=== PATIENT | male | born 1980 | race Two or more races ===

== ENCOUNTER 2018-07-24 01:24 | Inpatient (IN) | payer OTHER ==
[~2018-07-24] VITALS: Ht 170.2 cm; Wt 87.3 kg
[2018-07-24] MEDS ORDERED: MORPHINE SULFATE 4 MG/ML, 1ML ONE (01:59)
[2018-07-24] MEDS ORDERED: ONDANSETRON 2MG/ML, 2ML ONE (01:59)
[2018-07-24] MEDS ORDERED: DEXAMETHASONE 4 MG/ML, 5ML ONE (01:59)
[2018-07-24] MEDS ORDERED: SODIUM CHLORIDE 0.9% 1,000ML IVBOLUS ONE (02:00)
[2018-07-24] MEDS ORDERED: DEXAMETHASONE 4 MG/ML, 1ML IVPush ONE (02:00)
[2018-07-24] MEDS ORDERED: SODIUM CHLORIDE FLUSH 10ML SYR IVF ONE (02:00)
[2018-07-24] MEDS ORDERED: AMPICILLIN/SULBACTAM 3 GM in SODIUM CHLORIDE 0.9% 100 ML IV ONE (02:00)
[2018-07-24] MEDS ORDERED: ONDANSETRON 2MG/ML, 2ML IVPush ONE (02:00)
[2018-07-24] MEDS ORDERED: MORPHINE SULFATE 4 MG/ML, 1ML IVPush PRN (02:00)
[2018-07-24 02:07] LABS: BASOPHILS # (AUTO) 0.03 x10^3/uL (0-0.1); BASOPHILS % (AUTO) 0 % (0-1); EOSINOPHILS # (AUTO) 0.01 x10^3/uL (0-0.4); EOSINOPHILS % (AUTO) 0 % (1-7); LYMPHOCYTES # (AUTO) 1.19 x10^3/uL (1-3.4); LYMPHOCYTES % (AUTO) 12 % (22-44); MD NO; MEAN CORPUSCULAR HEMOGLOBIN 31.4 pg (27.5-34.5); MEAN CORPUSCULAR HGB CONC 34.4 g/dL (33.2-36.2); MEAN CORPUSCULAR VOLUME 91.4 fL (81-97); MEAN PLATELET VOLUME 9.6 fL (7.4-10.4); MONOCYTES # (AUTO) 0.87 x10^3/uL (0.2-0.8); MONOCYTES % (AUTO) 9 % (2-9); NEUTROPHILS # (AUTO) 7.96 x10^3/uL (1.8-6.8); NEUTROPHILS % (AUTO) 79 % (42-75); PLATELET COUNT 216 x10^3/uL (130-400); RED BLOOD COUNT 4.93 x10^6/uL (4.38-5.82); RED CELL DISTRIBUTION WIDTH 12.1 % (9.4-14.8)
[2018-07-24] MEDS ORDERED: OMNIPAQUE 350 MG/ML, 100ML BOTTLE ONE (02:07)
[2018-07-24 02:17] LABS: ALBUMIN 4.2 g/dL (3.4-5.0); ANION GAP 8 mmol/L (5-15); CHLORIDE 108 mmol/L (98-107); CREATININE 0.81 mg/dL (0.7-1.3)
[2018-07-24] MEDS ORDERED: OXYcodone IR 5MG TABLET PO PRN (03:30)
[2018-07-24] MEDS ORDERED: POLYETHYLENE GLYCOL 17 GM PACKET PO PRN (03:30)
[2018-07-24] MEDS ORDERED: PROMETHAZINE 25 MG/ML, 1ML IM PRN (03:30)
[2018-07-24] MEDS ORDERED: DOCUSATE 100 MG CAPSULE PO PRN (03:30)
[2018-07-24] MEDS ORDERED: BISACODYL 10 MG SUPP PR PRN (03:30)
[2018-07-24] MEDS ORDERED: ACETAMINOPHEN 325 MG TABLET PO PRN (03:30)
[2018-07-24] MEDS ORDERED: ONDANSETRON 2MG/ML, 2ML IVPush PRN (03:30)
[2018-07-24] MEDS ORDERED: ONDANSETRON ODT 4 MG PO PRN (03:30)
[2018-07-24] MEDS ORDERED: morphine SULFATE 10 MG/ML, 1ML IVPush PRN (03:30)
[2018-07-24] MEDS ORDERED: POTASSIUM CHLORIDE 40 MEQ in SODIUM CHLORIDE 0.9% 500 ML IV ONE (04:00)
[2018-07-24 04:07] LABS: FREE T4 (FREE THYROXINE) 1.5 ng/dL (0.76-1.46); THYROID STIMULATING HORMONE 2.1 mIU/L (0.358-3.740)
[2018-07-24] MEDS: KETOROLAC 30 MG/1 ML IV PRN ×2 (04:23→11:29)
[2018-07-24] MEDS: DEXAMETHASONE 4 MG/ML, 1ML IVPush SCH ×3 (06:43→23:38)
[2018-07-24] MEDS: AMPICILLIN/SULBACTAM 3 GM in SODIUM CHLORIDE 0.9% 100 ML IV SCH ×3 (09:55→20:09)
[2018-07-24] MEDS: SODIUM CHLORIDE 0.9% 1,000 ML IV SCH ×2 (09:56→20:09)
[2018-07-24 11:34] VITALS: BP 128/81
[2018-07-24 15:20] VITALS: BP 103/69
[2018-07-24 19:20] VITALS: BP 124/67
[2018-07-25] MEDS: AMPICILLIN/SULBACTAM 3 GM in SODIUM CHLORIDE 0.9% 100 ML IV SCH ×4 (02:02→19:47)
[2018-07-25 03:35] VITALS: BP 104/64
[2018-07-25 05:24] LABS: BASOPHILS % (AUTO) 0 % (0-1); EOSINOPHILS % (AUTO) 0 % (1-7); LYMPHOCYTES # (AUTO) 0.94 x10^3/uL (1-3.4); LYMPHOCYTES % (AUTO) 8 % (22-44); MD NO; MEAN CORPUSCULAR HEMOGLOBIN 31.6 pg (27.5-34.5); MEAN CORPUSCULAR HGB CONC 34.1 g/dL (33.2-36.2); MEAN CORPUSCULAR VOLUME 92.7 fL (81-97); MEAN PLATELET VOLUME 9.9 fL (7.4-10.4); MONOCYTES % (AUTO) 4 % (2-9); NEUTROPHILS # (AUTO) 10.45 x10^3/uL (1.8-6.8); NEUTROPHILS % (AUTO) 88 % (42-75); PLATELET COUNT 224 x10^3/uL (130-400); RED BLOOD COUNT 4.33 x10^6/uL (4.38-5.82); RED CELL DISTRIBUTION WIDTH 12.5 % (9.4-14.8)
[2018-07-25 05:46] LABS: CHLORIDE 111 mmol/L (98-107)
[2018-07-25 05:57] LABS: ALANINE AMINOTRANSFERASE 50 U/L (12-78); ALBUMIN 2.8 g/dL (3.4-5.0); ALKALINE PHOSPHATASE 188 U/L (45-117); ANION GAP 6 mmol/L (5-15); BILIRUBIN,TOTAL 0.6 mg/dL (0.2-1.0); CALCIUM 8.5 mg/dL (8.5-10.1); CHOL/HDL RATIO 5.5; CHOLESTEROL, TOTAL 170 mg/dL (140-239); CREATININE 0.67 mg/dL (0.7-1.3); HDL CHOL % 18 % (26-37); HDL CHOLESTEROL (DIRECT) 31 mg/dL (40-60); LDL CHOLESTEROL,CALCULATED 117 mg/dL (54-169); LDL/HDL RATIO 3.8 (0.5-3.0); TOTAL PROTEIN 6.9 g/dL (6.4-8.2); TRIGLYCERIDES 108 mg/dL (50-200); VLDL CHOLESTEROL 22 mg/dL (0-25)
[2018-07-25] MEDS: SODIUM CHLORIDE 0.9% 1,000 ML IV SCH (06:17)
[2018-07-25] MEDS: DEXAMETHASONE 4 MG/ML, 1ML IVPush SCH (06:20)
[2018-07-25 07:55] VITALS: BP 122/69
[2018-07-25 14:28] VITALS: BP 112/72
[2018-07-25 19:46] VITALS: BP 128/86
[2018-07-25] MEDS: KETOROLAC 30 MG/1 ML IV PRN (19:47)
[2018-07-26 00:07] VITALS: BP 113/74
[2018-07-26] MEDS: AMPICILLIN/SULBACTAM 3 GM in SODIUM CHLORIDE 0.9% 100 ML IV SCH ×2 (02:09→07:52)
[2018-07-26] MEDS: KETOROLAC 30 MG/1 ML IV PRN ×2 (04:53→13:05)
[2018-07-26 06:42] VITALS: BP 106/68
[2018-07-26] MEDS ORDERED: AMOX1TAB64 PO (12:30)
[2018-07-26] MEDS ORDERED: IBUP-1221 PO (12:30)
[2018-07-26 13:12] VITALS: BP 126/80
== END 2018-07-26 14:25 | disposition home or self-care (01) | DRG 153 ==
LOC: ED 03:20 → EDIP 03:51 → 4NOR 04:11 → DCLOUNGE 07-26 14:03
PROVIDERS: ADMIT Internal Medicine; ATTEND Internal Medicine
DX: J39.1 Other abscess of pharynx (principal); J36 Peritonsillar abscess; E87.6 Hypokalemia; K08.89 Other specified disorders of teeth and supporting structures
CPT/HCPCS: 36415; 70491; 80048; 80053; 80061; 82040; 83036; 83605; 83735; 84145; 84439; 84443; 85025; 86308; 87040; 96365; 96375; 99285; G0378; J0295; J1100; J1885; J2405; J3480; Q9967; J7030; J7040

== ENCOUNTER 2018-07-26 22:03 | Inpatient (IN) | payer MEDICAID, OTHER ==
[~2018-07-26] VITALS: Ht 170.2 cm; Wt 88.6 kg
[~2018-07-26 22:03] MED LIST: AMOX1TAB64 PO; IBUP-1221 PO
[2018-07-26] MEDS ORDERED: SODIUM CHLORIDE FLUSH 10ML SYR IVF ONE (22:30)
--- NOTE | 2018-07-26 22:45 | NUR ---
FIRST CONTACT WITH PT. PT SITTING UP IN [facility], [facility] NOTED. PT REPORTS WORSENING R FACE/NECK PAIN AND SWELLING DESPITE ABX. PT DC'D FROM [facility] INPATIENT FOR TX OF SAME. PT REPORTS SOME PAIN W/ SWALLOWING. PT MANAGING OWN SECRETIONS; AIRWAY PATENT, SPEECH CLEAR. DENIES FEVER/N/V. BP/SPO2 MONITOR IN PLACE. SPO2 >90% ON RR. RR WNL. IV ESTABLISHED. LABS AND BC X1 DRAWN WITH IV START. PT UPDATED TO POC (LAB/CT/RESULTS/RECHECK) AND DEMONSTRATES UNDERSTANDING. FRIEND AT BS.
[2018-07-26] MEDS ORDERED: OMNIPAQUE 350 MG/ML, 100ML BOTTLE ONE (23:09)
[2018-07-26 23:15] LABS: ALBUMIN 3.5 g/dL (3.4-5.0); ANION GAP 6 mmol/L (5-15); CALCIUM 8.6 mg/dL (8.5-10.1); CHLORIDE 107 mmol/L (98-107); CREATININE 0.84 mg/dL (0.7-1.3)
[2018-07-26 23:17] LABS: BASOPHILS # (AUTO) 0.02 x10^3/uL (0-0.1); BASOPHILS % (AUTO) 0 % (0-1); EOSINOPHILS # (AUTO) 0.08 x10^3/uL (0-0.4); EOSINOPHILS % (AUTO) 1 % (1-7); LYMPHOCYTES # (AUTO) 2.27 x10^3/uL (1-3.4); LYMPHOCYTES % (AUTO) 20 % (22-44); MD NO; MEAN CORPUSCULAR HEMOGLOBIN 30.7 pg (27.5-34.5); MEAN PLATELET VOLUME 9.7 fL (7.4-10.4); MONOCYTES # (AUTO) 1.11 x10^3/uL (0.2-0.8); MONOCYTES % (AUTO) 10 % (2-9); NEUTROPHILS # (AUTO) 7.88 x10^3/uL (1.8-6.8); NEUTROPHILS % (AUTO) 69 % (42-75); PLATELET COUNT 314 x10^3/uL (130-400); RED BLOOD COUNT 4.98 x10^6/uL (4.38-5.82); RED CELL DISTRIBUTION WIDTH 12.6 % (9.4-14.8)
[2018-07-27] MEDS ORDERED: ONDANSETRON 2MG/ML, 2ML ONE ×2 (00:05→02:18)
[2018-07-27] MEDS ORDERED: HYDROmorphone 1 MG/ML, 1ML ONE (00:05)
--- NOTE | 2018-07-27 00:15 | NUR ---
PT MEDICATED PER EMAR FOR 10/10 PAIN. BP/SPO2 MONITORING IN PLACE. PT PLACED ON 2L BY NC FOR SUPPORT. PT UPDATED TO POC (RESULTS/RECHECK) AND DEMONSTRATES UNDERSTANDING. AWAITING CT RESULT. FRIEND AT BEDSIDE.
[2018-07-27] MEDS ORDERED: AMPICILLIN/SULBACTAM 3 GM in SODIUM CHLORIDE 0.9% 100 ML IV ONE (00:30)
[2018-07-27] MEDS ORDERED: ONDANSETRON 2MG/ML, 2ML IVPush ONE (00:30)
[2018-07-27] MEDS ORDERED: HYDROmorphone 1 MG/ML, 1ML IVPush PRN (00:30)
[2018-07-27] MEDS ORDERED: methylPREDNISolone SOD SUCC 125 MG/2 ML ONE (00:41)
--- NOTE | 2018-07-27 00:50 | NUR ---
ABX AND STEROID ADMINISTERED PER EMAR. BC X2 DRAWN PRIOR TO ABX ADMIN. SPEECH MUFFLED. AIRWAY PATENT. PT MANAGING OWN SECRETIONS.
[2018-07-27] MEDS ORDERED: methylPREDNISolone SOD SUCC 125 MG/2 ML IVP ONE (01:00)
[2018-07-27] MEDS ORDERED: SODIUM CHLORIDE FLUSH 10ML SYR IVF PRN (01:00)
--- NOTE | 2018-07-27 01:12 | NUR ---
REPORT TO CRISTIN TIMMONS ON FLOOR.
[2018-07-27 01:28] VITALS: BP 148/94
[2018-07-27] MEDS ORDERED: MUPIROCIN OINT 2%, 22GM ONE (01:43)
[2018-07-27] MEDS ORDERED: BUPIVACAINE/PF-EPI 0.5% 1:200K ONE (01:43)
[2018-07-27] MEDS ORDERED: PHENYLEPHRINE NASAL 1%, 30ML DROPS ONE (01:54)
[2018-07-27] MEDS ORDERED: OXYMETAZOLINE NASAL SPRAY 0.05%, 15ML ONE (01:54)
[2018-07-27] MEDS: SODIUM CHLORIDE 0.9% 1,000 ML IV SCH ×3 (02:03→18:03)
[2018-07-27] MEDS ORDERED: PROPOFOL 50 ML ONE (02:12)
[2018-07-27] MEDS ORDERED: FENTANYL PF 250 MCG/5ML ONE (02:13)
[2018-07-27] MEDS ORDERED: MIDAZOLAM 1 MG/ML, 2ML ONE (02:13)
[2018-07-27] MEDS ORDERED: SUCCINYLCHOLINE 20 MG/ML, 10ML ONE (02:18)
[2018-07-27] MEDS ORDERED: PROPOFOL 10 MG/ML, 20ML ONE (02:18)
[2018-07-27] MEDS ORDERED: DEXAMETHASONE 4 MG/ML, 5ML ONE (02:18)
[2018-07-27] MEDS ORDERED: ROCURONIUM 10 MG/ML,10ML ONE (02:18)
[2018-07-27] MEDS ORDERED: BUPIVACAINE/PF-EPI 0.5% 1:200K IM ONE (02:29)
[2018-07-27] MEDS ORDERED: DEXAMETHASONE 4 MG/ML, 1ML IVPush ONE (02:30)
[2018-07-27] MEDS ORDERED: MUPIROCIN OINT 2%, 22GM TP ONE (02:30)
[2018-07-27] MEDS ORDERED: POTASSIUM CHLORIDE 20 MEQ TAB.ER.PRT PO ONE (02:30)
[2018-07-27] MEDS ORDERED: ONDANSETRON 2MG/ML, 2ML IVPush PRN (02:30)
[2018-07-27] MEDS ORDERED: EPINEPHRINE TOPICAL SOLN 1 MG/ML, 30ML ONE (02:39)
[2018-07-27] MEDS ORDERED: OXYMETAZOLINE NASAL SPRAY 0.05%, 15ML NAS ONE (02:44)
[2018-07-27] MEDS ORDERED: EPINEPHRINE TOPICAL SOLN 1 MG/ML, 30ML TP ONE (02:56)
[2018-07-27] MEDS ORDERED: THROMBIN 5,000 UNIT VIAL TP ONE ×2 (03:35→03:37)
[2018-07-27] MEDS ORDERED: OXYcodone 5 MG/5 ML ORAL.SOL UDC ONE (03:58)
[2018-07-27] MEDS ORDERED: FENTANYL PF 100 MCG/2ML ONE (03:58)
[2018-07-27] MEDS ORDERED: ONDANSETRON ODT 8 MG PO PRN (04:00)
[2018-07-27] MEDS ORDERED: PROMETHAZINE 12.5 MG SUPP PR PRN (04:00)
[2018-07-27] MEDS ORDERED: DIAZEPAM 5 MG/ML, 2ML IVPush PRN (04:00)
[2018-07-27] MEDS ORDERED: OXYcodone 5 MG/5 ML ORAL.SOL UDC PO PRN (04:00)
[2018-07-27] MEDS ORDERED: EPHEDRINE 50 MG/ML, 1ML IM PRN (04:00)
[2018-07-27] MEDS ORDERED: MEPERIDINE/PF 25MG/0.5ML IVPush PRN (04:00)
[2018-07-27] MEDS ORDERED: MORPHINE SULFATE 4 MG/ML, 1ML IVPush PRN (04:00)
[2018-07-27] MEDS ORDERED: MIDAZOLAM 1 MG/ML, 2ML IV PRN (04:00)
[2018-07-27] MEDS ORDERED: PROMETHAZINE 25 MG/ML, 1ML IV PRN (04:00)
[2018-07-27] MEDS ORDERED: DIPHENHYDRAMINE 50 MG/ML, 1ML IVPush PRN (04:00)
[2018-07-27] MEDS ORDERED: ONDANSETRON 2MG/ML, 2ML IV PRN (04:00)
[2018-07-27] MEDS ORDERED: PROMETHAZINE 25 MG SUPP PR PRN (04:00)
[2018-07-27] MEDS ORDERED: LABETALOL 5MG/ML, 20ML IV PRN (04:00)
[2018-07-27] MEDS ORDERED: EPHEDRINE 50 MG/ML, 1ML IVPush PRN (04:00)
[2018-07-27] MEDS: FENTANYL PF 100 MCG/2ML IV PRN ×2 (04:09→04:19)
[2018-07-27] MEDS ORDERED: morphine SULFATE 10 MG/ML, 1ML IVPush PRN (05:30)
[2018-07-27] MEDS: D5%-LACTATED RINGERS 1,000 ML IV SCH ×2 (05:37→13:23)
[2018-07-27] MEDS: AMPICILLIN/SULBACTAM 3 GM in SODIUM CHLORIDE 0.9% 100 ML IV SCH ×3 (06:33→18:38)
[2018-07-27 06:45] VITALS: BP 144/95
[2018-07-27] MEDS: HYDROcodone/APAP 7.5-325MG/15ML UDC PO PRN ×4 (08:13→20:41)
[2018-07-27] MEDS: KETOROLAC 30 MG/1 ML IV PRN ×2 (08:13→17:26)
[2018-07-27] MEDS: DEXAMETHASONE 4 MG/ML, 1ML IVPush SCH ×4 (09:30→20:41)
[2018-07-27 13:31] VITALS: BP 133/87
[2018-07-27] MEDS ORDERED: VANCOMYCIN PER PHARMACY MC PRN (15:00)
[2018-07-27] MEDS: VANCOMYCIN 1,700 MG in SODIUM CHLORIDE 0.9% 250 ML IV SCH (16:06)
[2018-07-27 19:35] VITALS: BP 145/90
[2018-07-28] MEDS: D5%-LACTATED RINGERS 1,000 ML IV SCH (01:26)
[2018-07-28] MEDS: DEXAMETHASONE 4 MG/ML, 1ML IVPush SCH ×2 (01:26→05:55)
[2018-07-28] MEDS: AMPICILLIN/SULBACTAM 3 GM in SODIUM CHLORIDE 0.9% 100 ML IV SCH ×4 (01:26→18:32)
[2018-07-28] MEDS: KETOROLAC 30 MG/1 ML IV PRN ×3 (01:27→18:33)
[2018-07-28 01:36] VITALS: BP 117/78
[2018-07-28] MEDS: HYDROcodone/APAP 7.5-325MG/15ML UDC PO PRN ×5 (01:41→23:31)
[2018-07-28] MEDS: SODIUM CHLORIDE 0.9% 1,000 ML IV SCH (02:03)
[2018-07-28] MEDS: VANCOMYCIN 1,700 MG in SODIUM CHLORIDE 0.9% 250 ML IV SCH ×2 (03:43→16:03)
[2018-07-28 06:02] LABS: BASOPHILS # (AUTO) 0.02 x10^3/uL (0-0.1); BASOPHILS % (AUTO) 0 % (0-1); EOSINOPHILS # (AUTO) 0.19 x10^3/uL (0-0.4); EOSINOPHILS % (AUTO) 2 % (1-7); LYMPHOCYTES # (AUTO) 1.08 x10^3/uL (1-3.4); LYMPHOCYTES % (AUTO) 11 % (22-44); MD NO; MEAN CORPUSCULAR HEMOGLOBIN 31.4 pg (27.5-34.5); MEAN CORPUSCULAR HGB CONC 34.1 g/dL (33.2-36.2); MEAN PLATELET VOLUME 9.1 fL (7.4-10.4); MONOCYTES # (AUTO) 0.53 x10^3/uL (0.2-0.8); MONOCYTES % (AUTO) 6 % (2-9); NEUTROPHILS # (AUTO) 7.92 x10^3/uL (1.8-6.8); NEUTROPHILS % (AUTO) 81 % (42-75); PLATELET COUNT 330 x10^3/uL (130-400); RED BLOOD COUNT 4.42 x10^6/uL (4.38-5.82); RED CELL DISTRIBUTION WIDTH 12.6 % (9.4-14.8)
[2018-07-28 06:12] LABS: ALANINE AMINOTRANSFERASE 43 U/L (12-78); ALBUMIN 2.6 g/dL (3.4-5.0); ANION GAP 5 mmol/L (5-15); CALCIUM 8.1 mg/dL (8.5-10.1); CHLORIDE 109 mmol/L (98-107)
[2018-07-28 06:16] LABS: ALKALINE PHOSPHATASE 160 U/L (45-117); BILIRUBIN,TOTAL 0.5 mg/dL (0.2-1.0); CREATININE 0.69 mg/dL (0.7-1.3); TOTAL PROTEIN 6.7 g/dL (6.4-8.2)
[2018-07-28 08:05] VITALS: BP 120/78
[2018-07-28] MEDS: LACTATED RINGERS 1,000 ML IV SCH ×2 (12:30→23:32)
[2018-07-28 14:02] VITALS: BP 123/74
[2018-07-28] MEDS ORDERED: HYDR-3240 PO (17:27)
[2018-07-28 20:00] VITALS: BP 132/82
[2018-07-29] MEDS: AMPICILLIN/SULBACTAM 3 GM in SODIUM CHLORIDE 0.9% 100 ML IV SCH ×2 (01:55→07:41)
[2018-07-29] MEDS: KETOROLAC 30 MG/1 ML IV PRN ×2 (01:56→07:50)
[2018-07-29] MEDS: VANCOMYCIN 1,700 MG in SODIUM CHLORIDE 0.9% 250 ML IV SCH ×2 (03:43→15:30)
[2018-07-29 05:28] VITALS: BP 126/81
[2018-07-29 05:55] LABS: BASOPHILS # (AUTO) 0.02 x10^3/uL (0-0.1); BASOPHILS % (AUTO) 0 % (0-1); EOSINOPHILS # (AUTO) 0.24 x10^3/uL (0-0.4); EOSINOPHILS % (AUTO) 2 % (1-7); LYMPHOCYTES # (AUTO) 2.44 x10^3/uL (1-3.4); LYMPHOCYTES % (AUTO) 24 % (22-44); MD NO; MEAN CORPUSCULAR HEMOGLOBIN 31.3 pg (27.5-34.5); MEAN CORPUSCULAR VOLUME 92.1 fL (81-97); MEAN PLATELET VOLUME 9.1 fL (7.4-10.4); MONOCYTES # (AUTO) 0.93 x10^3/uL (0.2-0.8); MONOCYTES % (AUTO) 9 % (2-9); NEUTROPHILS # (AUTO) 6.52 x10^3/uL (1.8-6.8); NEUTROPHILS % (AUTO) 64 % (42-75); PLATELET COUNT 350 x10^3/uL (130-400); RED BLOOD COUNT 4.07 x10^6/uL (4.38-5.82); RED CELL DISTRIBUTION WIDTH 12.3 % (9.4-14.8)
[2018-07-29 06:03] LABS: ALANINE AMINOTRANSFERASE 35 U/L (12-78); ALBUMIN 2.5 g/dL (3.4-5.0); ANION GAP 4 mmol/L (5-15); CALCIUM 7.9 mg/dL (8.5-10.1); CHLORIDE 110 mmol/L (98-107)
[2018-07-29 06:06] LABS: ALKALINE PHOSPHATASE 129 U/L (45-117); BILIRUBIN,TOTAL 0.6 mg/dL (0.2-1.0); CREATININE 0.84 mg/dL (0.7-1.3); TOTAL PROTEIN 5.8 g/dL (6.4-8.2)
[2018-07-29] MEDS: HYDROcodone/APAP 7.5-325MG/15ML UDC PO PRN ×2 (07:50→13:30)
[2018-07-29] MEDS ORDERED: ERTAPENEM 1 GM in SODIUM CHLORIDE 0.9% 50 ML IV SCH (08:00)
[2018-07-29 08:10] VITALS: BP 145/96
[2018-07-29] MEDS ORDERED: POTASSIUM CHLORIDE 10% 40 MEQ/30 ML UDC PO SCH ×2 (09:00→11:00)
[2018-07-29] MEDS: LACTATED RINGERS 1,000 ML IV SCH (10:00)
[2018-07-29] MEDS ORDERED: AMOX250S20 PO (13:07)
[2018-07-29 13:17] VITALS: BP 141/97
== END 2018-07-29 16:10 | disposition home or self-care (01) | DRG 133 ==
LOC: ED 22:56 → EDIP 07-27 00:51 → 4NOR 07-27 01:18
PROVIDERS: ADMIT Family Medicine; ATTEND Family Medicine
PROC: 0CBN0ZZ Excision of Uvula, Open Approach (ICD-10-PCS; 2018-07-27)
PROC: 0CTPXZZ Resection of Tonsils, External Approach (ICD-10-PCS; principal; 2018-07-27 02:00)
DX: J39.0 Retropharyngeal and parapharyngeal abscess (principal); E43 Unspecified severe protein-calorie malnutrition; J39.1 Other abscess of pharynx; J35.01 Chronic tonsillitis; E86.0 Dehydration; E87.6 Hypokalemia; R25.2 Cramp and spasm; Z68.30 Body mass index [BMI] 30.0-30.9, adult
CPT/HCPCS: 36415; 99285; J7121; 70491; 80048; 80053; 82040; 83735; 84100; 85025; 87015; 87040; 87070; 87075; 87102; 87116; 87205; 87206; 88304; 96365; 96375; G0378; J0295; J1100; J1170; J1335; J1885; J2250; J2405; J2704; J3010; J3370; Q9967; J0330; J2930; J7050; J7120